=== PATIENT | male | born 1955 | race Caucasian/White ===

== ENCOUNTER 2016-12-11 08:45 | Emergency (ER) | payer SELFPAY ==
[~2016-12-11 08:45] MED LIST: DULoxetine 30 MG CAP PO SCH; LISINOPRIL 10 MG TAB PO SCH; OLANZapine DISINTEGR 5 MG TAB PO SCH
[2016-12-11 08:53] VITALS: TEMP 96.8
--- NOTE | 2016-12-11 08:58 | EDPHY ---
H & P Time Seen by Provider: 12/11/16 08:54 HPI/ROS: Chief complaint. Has not taken meds, can't sleep HPI. 61-year-old male here with complaints of not taking medication and can't sleep. He left a rehab facility in [facility] 3 days ago against medical advice. He left without any prescriptions. He normally takes Cymbalta, Zyprexa , lisinopril. However he has no medication. He moved to [place] without any family support or plan. Since leaving and not taking medication he is having a hard time sleeping. He denies illness, chest discomfort, shortness of breath, abdominal pain. No fever ROS Constitutional. no fever/chills, no weakness Eyes. no problems with vision ENT. no sore throat, no nasal drainage Cardiovascular. no chest pain Respiratory. no shortness of breath, no cough Abdominal. no abdominal pain, no nausea/vomiting, no diarrhea . no problems urinating MS. no calf pain/swelling, no neck/back pain, no joint pain Skin. no rash Lymph. no swollen glands Neuro. Can not sleep Past Medical/Surgical History: Schizoaffective disorder, hypertension, hip surgery Social History: Single, daily smoker, no alcohol Smoking Status: Current every day smoker Physical Exam: General Appearance: Alert well-developed male mild distress vital signs show heart rate 101 and blood pressure 124/100. He is afebrile Eyes: Pupils equal and round no pallor or injection. ENT, Mouth: Mucous membranes are moist. Respiratory: There are no retractions, lungs are clear to auscultation. Cardiovascular: Regular rate and rhythm. Gastrointestinal: Abdomen is soft and nontender, no masses, bowel sounds normal. Neurological: Awake and alert, sensory and motor exams grossly normal. Skin: Warm and dry, no rashes. Musculoskeletal: Neck is supple nontender. Extremities symmetrical, full range of motion. Psychiatric: Patient is oriented X 3, there is no agitation. Constitutional: Initial Vital Signs Temperature (C) 36 C 12/11/16 08:49 Heart Rate 101 H 12/11/16 08:49 Respiratory Rate 18 12/11/16 08:49 Blood Pressure 124/100 H 12/11/16 08:49 O2 Sat (%) 98 12/11/16 08:49 O2 Delivery Mode Room Air Allergies/Adverse Reactions: haloperidol [From Haldol] Allergy (Verified 12/11/16 08:48) Home Medications: Medication Instructions Recorded Cymbalta 12/11/16 DULoxetine [Cymbalta 30 MG (*)] 30 mg PO HS #3 cap 12/11/16 Lisinopril 10 mg PO DAILY #3 tablet 12/11/16 OLANZapine [Zyprexa Zydis] 15 mg PO HS #3 tab.rapdis 12/11/16 Zyprexa 12/11/16 Medical Decision Making ED Course/Re-evaluation: We contacted [facility] rehab facility in [place], [place]. They are in the process of taking down the patient's chart and cannot immediately give us his med list. There attempted to contact her case monitor there to help with finding a list of his medications. We will have case management here also work with the patient. There is apparently and also incidental finding in talking with the rehab facility that the patient has a warrant for his arrest Re-evaluation at 9:25 a.m. and the patient and I discussed this and that we were waiting to find the correct doses of his medications as the patient does not know the doses of his medications. He expresses understanding and agreement We had case management see the patient. [place] [employer] does not see an [employer] warrant for the patient to rest. Were unable to determine the exact doses of the patient's medication. We will start the patient on a his regular meds with a referral to Mental Health in the next few days and were trying to get him an appointment. This is discussed with the patient --he expresses understanding and agreement Differential Diagnosis: The patient left the rehab facility in [place] abruptly as they wanted to keep him in long-term care. He came to [place] with no plan and no medication. At this point he wishes to return to [place]. We will provide the patient with a 3 day supply. He is also given the name of mental health and phone number. Departure - Departure Disposition: Home, Routine, Self-Care Clinical Impression: Medication refill Condition: Good Instructions: Schizoaffective Disorder (ED) Additional Instructions: We are providing you with 3 days of medication. I will also give you the name of mental health to call for further evaluation and medication. Return for worsening symptoms Referrals: NONE *PRIMARY CARE P,. [Primary Care Provider] - As per Instructions [facility] [Outside] - 2-3 days, call for appt. Prescriptions: DULoxetine [Cymbalta 30 MG (*)] 30 mg PO HS #3 cap Lisinopril 10 mg PO DAILY #3 tablet OLANZapine [Zyprexa Zydis] 15 mg PO HS #3 tab.rapdis
[2016-12-11 12:13] VITALS: BP 150/86; PULSE 87; RESP 16; O2SAT 95
== END 2016-12-11 12:26 | disposition home or self-care (01) ==
DX: Z76.0 Encounter for issue of repeat prescription (principal); F17.200 Nicotine dependence, unspecified, uncomplicated; I10 Essential (primary) hypertension